=== PATIENT | male | born 2000 | race Caucasian/White ===

== ENCOUNTER → 2019-10-28 | Outpatient (REF) | payer OTHER ==
[2019-10-28 16:38] LABS: CHLAMYDIA DNA AMPLIFICATION NEGATIVE (NEGATIVE); GC DNA AMPLIFICATION NEGATIVE (NEGATIVE)
== END ==
LOC: M LAB REF 14:30
PROVIDERS: ATTEND Physician Assistant
DX: Z20.2 Contact with and (suspected) exposure to infections with a predominantly sexual mode of transmission (principal)

== ENCOUNTER 2019-11-18 19:57 | Emergency (ER) | payer OTHER ==
[2019-11-18] MEDS ORDERED: INDOMETHACIN 25 MG CAP ONE (19:58)
[2019-11-19] MEDS ORDERED: FUROSEMIDE 40MG/4ML VIAL (J1940) As Ordered ONE ×2 (11:46→23:54)
[2019-11-19] MEDS ORDERED: DOXYCYCLINE HYCLATE 100MG TABLET As Ordered ONE (23:43)
[2019-11-19] MEDS ORDERED: GABAPENTIN 400 MG CAP As Ordered ONE (23:43)
[2019-11-20] MEDS ORDERED: PANTOPRAZOLE 40MG TAB (PROTONIX) As Ordered ONE (08:37)
[2019-11-20] MEDS ORDERED: DULoxetine 30 MG CAP (CYMBALTA) As Ordered ONE (08:37)
[2019-11-20] MEDS ORDERED: SENOKOT S TAB As Ordered ONE ×2 (08:37→20:39)
[2019-11-20] MEDS ORDERED: CARVedilol 3.125 MG TAB As Ordered ONE ×2 (08:38→20:40)
[2019-11-20] MEDS ORDERED: GABAPENTIN 400 MG CAP As Ordered ONE ×2 (08:38→20:40)
[2019-11-20] MEDS ORDERED: DOXYCYCLINE HYCLATE 100MG TABLET As Ordered ONE ×2 (08:48→20:43)
[2019-11-20] MEDS ORDERED: FEBUXOSTAT 40 MG TABLET (ULORIC) ONE (09:00)
[2019-11-20] MEDS ORDERED: glipiZIDE (GLUCOTROL) 5 MG TAB ONE (09:00)
[2019-11-20] MEDS ORDERED: busPIRone 10 MG TAB ONE (09:00)
[2019-11-20] MEDS ORDERED: DAPTOmycin 500 MG/10 ML VIAL (CUBICIN) (J0878) ONE (12:00)
[2019-11-20] MEDS ORDERED: FUROSEMIDE 40MG/4ML VIAL (J1940) As Ordered ONE ×2 (12:28→23:40)
[2019-11-20] MEDS ORDERED: APIXABAN 2.5 MG TAB (ELIQUIS) As Ordered ONE ×2 (12:29→20:40)
[2019-11-20] MEDS ORDERED: HumaLOG INSULIN (NovoLOG) PER UNIT As Ordered ONE (17:45)
[2019-11-20] MEDS ORDERED: oxyCODONE 5MG TAB As Ordered ONE (18:05)
[2019-11-20] MEDS ORDERED: DEXTROSE 50% 50 ML SYRINGE As Ordered ONE ×2 (20:18)
[2019-11-21] MEDS ORDERED: SENOKOT S TAB As Ordered ONE ×2 (08:31→21:31)
[2019-11-21] MEDS ORDERED: PANTOPRAZOLE 40MG TAB (PROTONIX) As Ordered ONE (08:31)
[2019-11-21] MEDS ORDERED: DULoxetine 30 MG CAP (CYMBALTA) As Ordered ONE (08:31)
[2019-11-21] MEDS ORDERED: APIXABAN 2.5 MG TAB (ELIQUIS) As Ordered ONE ×2 (08:32→21:32)
[2019-11-21] MEDS ORDERED: DOXYCYCLINE HYCLATE 100MG TABLET As Ordered ONE ×2 (08:32→21:32)
[2019-11-21] MEDS ORDERED: GABAPENTIN 400 MG CAP As Ordered ONE ×2 (08:32→21:32)
[2019-11-21] MEDS ORDERED: DAPTOmycin 500 MG/10 ML VIAL (CUBICIN) (J0878) ONE (09:32)
[2019-11-21] MEDS ORDERED: glipiZIDE (GLUCOTROL) 5 MG TAB ONE (09:35)
[2019-11-21] MEDS ORDERED: FEBUXOSTAT 40 MG TABLET (ULORIC) ONE (09:35)
[2019-11-21] MEDS ORDERED: busPIRone 10 MG TAB ONE (09:35)
[2019-11-21] MEDS ORDERED: FUROSEMIDE 40MG/4ML VIAL (J1940) As Ordered ONE (12:07)
[2019-11-21] MEDS ORDERED: oxyCODONE 5MG TAB As Ordered ONE ×2 (12:07→18:22)
[2019-11-21] MEDS ORDERED: BENZONATATE 100 MG CAP As Ordered ONE (21:32)
[2019-11-22] MEDS ORDERED: FUROSEMIDE 40MG/4ML VIAL (J1940) As Ordered ONE ×2 (00:47→12:28)
[2019-11-22] MEDS ORDERED: SENOKOT S TAB As Ordered ONE ×2 (09:28→21:05)
[2019-11-22] MEDS ORDERED: GABAPENTIN 400 MG CAP As Ordered ONE ×2 (09:28→20:39)
[2019-11-22] MEDS ORDERED: PANTOPRAZOLE 40MG TAB (PROTONIX) As Ordered ONE (09:28)
[2019-11-22] MEDS ORDERED: DULoxetine 30 MG CAP (CYMBALTA) As Ordered ONE (09:28)
[2019-11-22] MEDS ORDERED: DOXYCYCLINE HYCLATE 100MG TABLET As Ordered ONE ×2 (09:29→20:42)
[2019-11-22] MEDS ORDERED: APIXABAN 2.5 MG TAB (ELIQUIS) As Ordered ONE ×2 (09:29→20:44)
[2019-11-22] MEDS ORDERED: CARVedilol 3.125 MG TAB As Ordered ONE (09:29)
[2019-11-22] MEDS ORDERED: oxyCODONE 5MG TAB As Ordered ONE ×2 (09:48→20:47)
[2019-11-22] MEDS ORDERED: HumaLOG INSULIN (NovoLOG) PER UNIT As Ordered ONE (12:31)
[2019-11-22] MEDS ORDERED: NYSTATIN 500,000 U/5 ML SUSP UDC As Ordered ONE (20:45)
[2019-11-22] MEDS ORDERED: BENZONATATE 100 MG CAP As Ordered ONE (20:48)
[2019-12-15 14:13] LABS: ALBUMIN 4.4 GM/DL (3.2-5.2); ALT/SGPT 33 U/L (12-78); BILIRUBIN,DIRECT 0.1 MG/DL (0.0-0.2); BILIRUBIN,TOTAL 0.5 MG/DL (0.2-1.0); BLOOD UREA NITROGEN 8 MG/DL (7-18); CALCIUM LEVEL 9.2 MG/DL (8.5-10.1); CARBON DIOXIDE LEVEL 30 MEQ/L (21-32); CHLORIDE LEVEL 102 MEQ/L (98-107); CPK CREATINE PHOSPHOKINASE 762 U/L (39-308); CREATININE FOR GFR 0.99 MG/DL (0.70-1.30); GLOMERULAR FILTRATION RATE > 60.0 (>60); GLUCOSE, FASTING 122 MG/DL (70-100); LIPASE 49 U/L (73-393); MB/CK RELATIVE INDEX 4.86 (< OR =4); SODIUM LEVEL 137 MEQ/L (136-145); THYROID STIMULATING HORMONE 0.688 uIU/ML (0.358-3.740); TOTAL PROTEIN 7.9 GM/DL (6.4-8.2)
[2019-12-22 10:51] LABS: BASO % 0.2 % (0.0-1.0); EOS % 0.2 % (0.0-3.0); HEMATOCRIT 44.6 % (42.0-52.0); LYMPH # 0.8 10^3/uL (1.5-5.0); LYMPH % 14.4 % (24.0-44.0); MEAN CORPUSCULAR HEMOGLOBIN 30.2 pg (27.0-33.0); MEAN CORPUSCULAR HGB CONC 33.6 g/dl (32.0-36.5); MEAN CORPUSCULAR VOLUME 89.7 fl (80.0-96.0); MONO # 0.8 10^3/uL (0.0-0.8); MONO % 14.4 % (0.0-5.0); NEUTROPHILS # 3.9 10^3/uL (1.5-8.5); NEUTROPHILS % 70.4 % (36.0-66.0); PLATELET COUNT, AUTOMATED 192 10^3/uL (150-450); RED BLOOD COUNT 4.97 10^6/uL (4.30-6.10); WHITE BLOOD COUNT 5.5 10^3/uL (4.0-10.0)
[2019-12-22 10:53] LABS: ERYTHROCYTE SEDIMENTATION RATE 8 mm/hr (0-15)
--- NOTE | 2020-01-04 14:37 | ECGEPIP ---
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
== END 2019-11-18 22:40 | disposition short-term general hospital (02) ==
LOC: M ED 19:57
DX: I38 Endocarditis, valve unspecified (principal); R94.31 Abnormal electrocardiogram [ECG] [EKG]; R06.02 Shortness of breath; Z88.1 Allergy status to other antibiotic agents
CPT/HCPCS: 71045; 80048; 80076; 82550; 82553; 83690; 84443; 84484; 85025; 85379; 85652; 86140; 87880; 93005; 96374; 99285; J0878; U0002

== ENCOUNTER 2019-12-04 15:05 | Inpatient (IN) | payer OTHER ==
[~2019-12-04 15:05] MED LIST: ISOVUE-370 76% 100ML VIAL As Ordered ONE
[2019-12-04] MEDS ORDERED: UNASYN 3 GM VIAL As Ordered ONE ×2 (15:57→23:36)
[2019-12-04] MEDS ORDERED: UNASYN 3 GM VIAL ONE ×2 (15:57→23:36)
[2019-12-04] MEDS ORDERED: KETOROLAC 30 MG/ML 1ML VIAL ONE (15:57)
[2019-12-04] MEDS ORDERED: KETOROLAC 30 MG/ML 1ML VIAL As Ordered ONE (16:09)
[2019-12-04] MEDS ORDERED: methylPREDNISolone 40MG 1ML VIAL As Ordered ONE (22:33)
[2019-12-04] MEDS ORDERED: methylPREDNISolone 40MG 1ML VIAL ONE (23:36)
[2019-12-05] MEDS ORDERED: KETOROLAC 30 MG/ML 1ML VIAL As Ordered ONE ×3 (03:36→23:22)
[2019-12-05] MEDS ORDERED: KETOROLAC 30 MG/ML 1ML VIAL ONE ×3 (03:36→23:22)
[2019-12-05] MEDS ORDERED: methylPREDNISolone 40MG 1ML VIAL As Ordered ONE (08:24)
[2019-12-05] MEDS ORDERED: methylPREDNISolone 40MG 1ML VIAL ONE (08:24)
[2019-12-05] MEDS ORDERED: predniSONE 20 MG TAB ONE (13:40)
[2019-12-05] MEDS ORDERED: predniSONE 20 MG TAB As Ordered ONE (13:40)
[2019-12-05] MEDS ORDERED: UNASYN 3 GM VIAL ONE (21:00)
[2019-12-06] MEDS ORDERED: predniSONE 20 MG TAB As Ordered ONE (10:03)
[2019-12-06] MEDS ORDERED: predniSONE 20 MG TAB ONE (10:03)
[2020-01-17 10:08] LABS: HEMATOCRIT 42.7 % (42.0-52.0); HEMOGLOBIN 14.1 g/dl (13.5-17.5); MEAN CORPUSCULAR HEMOGLOBIN 29.9 pg (27.0-33.0); MEAN CORPUSCULAR VOLUME 90.5 fl (80.0-96.0); PLATELET COUNT, AUTOMATED 251 10^3/uL (150-450); RED BLOOD COUNT 4.72 10^6/uL (4.30-6.10); WHITE BLOOD COUNT 9.5 10^3/uL (4.0-10.0)
[2020-01-17 10:14] LABS: ATYPICAL LYMPH 6 % (0-5); LYMPHOCYTES 24 % (16-44); MONOCYTES 4 % (0-5); NEUTROPHILS 64 % (28-66)
[2020-01-17 10:15] LABS: ERYTHROCYTE SEDIMENTATION RATE 22 mm/hr (0-15); PLATELET ESTIMATE NORMAL (NORMAL)
[2020-01-26 16:42] LABS: HEMATOCRIT 36.4 % (42.0-52.0); HEMOGLOBIN 12.2 g/dl (13.5-17.5); MEAN CORPUSCULAR HEMOGLOBIN 30.3 pg (27.0-33.0); MEAN CORPUSCULAR HGB CONC 33.5 g/dl (32.0-36.5); MEAN CORPUSCULAR VOLUME 90.5 fl (80.0-96.0); PLATELET COUNT, AUTOMATED 232 10^3/uL (150-450); RED BLOOD COUNT 4.02 10^6/uL (4.30-6.10); WHITE BLOOD COUNT 9.2 10^3/uL (4.0-10.0)
[2020-02-02 07:19] LABS: MEAN CORPUSCULAR HEMOGLOBIN 29.9 pg (27.0-33.0); MEAN CORPUSCULAR HGB CONC 33.3 g/dl (32.0-36.5); MEAN CORPUSCULAR VOLUME 89.8 fl (80.0-96.0); PLATELET COUNT, AUTOMATED 233 10^3/uL (150-450); RED BLOOD COUNT 4.01 10^6/uL (4.30-6.10); WHITE BLOOD COUNT 8.7 10^3/uL (4.0-10.0)
[2020-02-17 15:39] LABS: EBV AB TO NUCLEAR ANTIGEN SEE SEPARATE REPORT; EBV VIRAL CAPSID AG IgG SEE SEPARATE REPORT; EBV VIRAL CAPSID AG IgM SEE SEPARATE REPORT
[2020-02-26 05:11] LABS: ALBUMIN 4.2 GM/DL (3.2-5.2); ALT/SGPT 361 U/L (12-78); BILIRUBIN,DIRECT < 0.1 MG/DL (0.0-0.2); BILIRUBIN,TOTAL 0.3 MG/DL (0.2-1.0); BLOOD UREA NITROGEN 14 MG/DL (7-18); C REACTIVE PROTEIN QUANTITATIV 3.35 MG/DL (0.00-0.30); CALCIUM LEVEL 9.4 MG/DL (8.5-10.1); CARBON DIOXIDE LEVEL 28 MEQ/L (21-32); CHLORIDE LEVEL 105 MEQ/L (98-107); CREATININE FOR GFR 0.91 MG/DL (0.70-1.30); GLOMERULAR FILTRATION RATE > 60.0 (>60); GLUCOSE, FASTING 115 MG/DL (70-100); POTASSIUM SERUM 3.9 MEQ/L (3.5-5.1); SODIUM LEVEL 140 MEQ/L (136-145); TOTAL PROTEIN 8.3 GM/DL (6.4-8.2)
[2020-02-26 05:12] LABS: MONO SCRN POSITIVE (NEGATIVE)
[2020-02-26 16:43] LABS: ALBUMIN 3.5 GM/DL (3.2-5.2); ALT/SGPT 252 U/L (12-78); BILIRUBIN,TOTAL 0.3 MG/DL (0.2-1.0); BLOOD UREA NITROGEN 18 MG/DL (7-18); C REACTIVE PROTEIN QUANTITATIV 3.43 MG/DL (0.00-0.30); CALCIUM LEVEL 8.9 MG/DL (8.5-10.1); CARBON DIOXIDE LEVEL 29 MEQ/L (21-32); CHLORIDE LEVEL 106 MEQ/L (98-107); CREATININE FOR GFR 0.78 MG/DL (0.70-1.30); GLOMERULAR FILTRATION RATE > 60.0 (>60); GLUCOSE, FASTING 128 MG/DL (70-100); POTASSIUM SERUM 4.1 MEQ/L (3.5-5.1); SODIUM LEVEL 142 MEQ/L (136-145)
[2020-02-26 16:43] LABS: HEPATITIS A ANTIBODY IGM NEGATIVE (NEGATIVE); HEPATITIS B CORE ANTIBODY IGM NEGATIVE (NEGATIVE); HEPATITIS B SURFACE ANTIGEN NEGATIVE (NEGATIVE); HEPATITIS C VIRUS ABY INDEX 0.2 INDEX (<0.8)
[2020-03-01 02:50] LABS: BLOOD UREA NITROGEN 16 MG/DL (7-18); CALCIUM LEVEL 8.9 MG/DL (8.5-10.1); CARBON DIOXIDE LEVEL 31 MEQ/L (21-32); CHLORIDE LEVEL 108 MEQ/L (98-107); CREATININE FOR GFR 0.78 MG/DL (0.70-1.30); GLOMERULAR FILTRATION RATE > 60.0 (>60); GLUCOSE, FASTING 101 MG/DL (70-100); POTASSIUM SERUM 3.7 MEQ/L (3.5-5.1); SODIUM LEVEL 144 MEQ/L (136-145)
== END 2019-12-06 16:30 | disposition home or self-care (01) | DRG 153 ==
LOC: M ED 15:05 → M PCU 17:00
PROVIDERS: ADMIT Internal Medicine; ATTEND Internal Medicine
DX: J36 Peritonsillar abscess (principal); B27.90 Infectious mononucleosis, unspecified without complication